=== PATIENT | female | born 1990 | race African-American/Black ===

== ENCOUNTER 2021-11-21 21:37 | Emergency (ER) | payer MEDICAID ==
[~2021-11-21] VITALS: Ht 165.1 cm; Wt 51.0 kg
[2021-11-22 02:42] VITALS: BP 115/74
== END 2021-11-22 02:50 | disposition home or self-care (01) ==
LOC: ER 21:37
DX: T40.711A Poisoning by cannabis, accidental (unintentional), initial encounter (principal); R06.02 Shortness of breath; R07.89 Other chest pain; F12.90 Cannabis use, unspecified, uncomplicated; R03.0 Elevated blood-pressure reading, without diagnosis of hypertension; Y92.89 Other specified places as the place of occurrence of the external cause; J45.909 Unspecified asthma, uncomplicated
CPT/HCPCS: 99283

== ENCOUNTER 2022-04-26 07:28 | Observation (INO) | payer MEDICAID, OTHER ==
[~2022-04-26] VITALS: Ht 160 cm; Wt 63.5 kg
[2022-04-26] MEDS ORDERED: CITA40TA22 PO (09:26)
[2022-04-26] MEDS ORDERED: OXCA600T5 PO (09:26)
[2022-04-26] MEDS ORDERED: PREN-118 PO (09:26)
== END 2022-04-26 11:15 | disposition home or self-care (01) ==
LOC: 8 EST LDRP 07:28 → 8 EST A/PP 08:10
PROVIDERS: ADMIT Obstetrics & Gynecology; ATTEND Obstetrics & Gynecology
DX: O26.893 Other specified pregnancy related conditions, third trimester (principal); N89.8 Other specified noninflammatory disorders of vagina; O62.9 Abnormality of forces of labor, unspecified; Z3A.31 31 weeks gestation of pregnancy
CPT/HCPCS: 59025; 76805; 76818; G0378; 99281